=== PATIENT | female | born 1960 | race Caucasian/White ===

== ENCOUNTER 2018-12-30 07:30 | Inpatient (IN) | payer BC ==
[~2018-12-30] VITALS: Ht 170.2 cm; Wt 110.2 kg
[2019-01-08 12:14] LABS: BASOPHILS # (AUTO) 0.1 X10'3 (0-0.2); EOSINOPHILS # (AUTO) 0.2 X10'3 (0-0.9); EOSINOPHILS % (AUTO) 2.7 % (0-6); LYMPHOCYTES # (AUTO) 1.8 X10'3 (1.1-4.8); LYMPHOCYTES % (AUTO) 28.2 % (21-51); MEAN CORPUSCULAR HEMOGLOBIN 27.4 PG (27.0-31.0); MEAN CORPUSCULAR VOLUME 82.9 FL (78-98); MONOCYTES # (AUTO) 0.5 X10'3 (0-0.9); MONOCYTES % (AUTO) 7.2 % (2-12); NEUTROPHILS # (AUTO) 3.9 X10'3 (1.8-7.7); NEUTROPHILS % (AUTO) 60.9 % (42-75); PRE OP HEMATOCRIT 37.2 % (35.0-45.0); PRE OP HEMOGLOBIN 12.3 g/dL (12.0-16.0); PRE OP PLATELET COUNT 357 X10'3 (140-440); RED BLOOD COUNT 4.48 X10'6 (4.20-5.60); RED CELL DISTRIBUTION WIDTH 14.7 % (11.5-14.5)
[2019-01-08 12:23] LABS: PRE OP INR 0.9 INR; PRE OP PROTIME 9.4 SECONDS (9.0-12.0)
[2019-01-08 12:33] LABS: ALBUMIN 3.5 G/DL (3.4-5.0); ALBUMIN/GLOBULIN RATIO 1.1 (1.1-1.5); ALKALINE PHOSPHATASE 59 IU/L (46-116); BLOOD UREA NITROGEN 18 MG/DL (7-18); BUN/CREATININE RATIO 22.8 (6.6-38.0); CALCIUM 8.6 MG/DL (8.5-10.1); CHLORIDE 107 MMOL/L (99-107); CREATININE 0.79 MG/DL (0.40-0.90); PRE OP ALT 29 U/L (30-65); PRE OP ANION GAP 8 (8-16); PRE OP AST 27 U/L (10-37); PRE OP BILIRUB, TOTAL 0.2 MG/DL (0.0-1.0); PRE OP GLUCOSE 93 MG/DL (70-104); PRE OP POTASSIUM 4.4 MMOL/L (3.4-5.1); PRE OP SODIUM 141 MMOL/L (135-145); TOTAL CARBON DIOXIDE 26.5 MMOL/L (24-32); TOTAL PROTEIN 6.8 G/DL (6.4-8.2); eGFR 75 ML/MIN
[2019-01-08] MEDS ORDERED: LEVO175T7 PO (12:39)
[2019-01-08] MEDS ORDERED: FERR324T4 PO (12:39)
[2019-01-08] MEDS ORDERED: HYDR-4353 PO (12:39)
[2019-01-08] MEDS ORDERED: LISI40TA4 PO (12:39)
[2019-01-08] MEDS ORDERED: LEVO1CAP PO (12:39)
[2019-01-08] MEDS ORDERED: LISD60CA PO (12:39)
[2019-01-08] MEDS ORDERED: TURM538C PO (12:39)
[2019-01-08] MEDS ORDERED: MULT-933 PO (12:39)
[2019-01-08] MEDS ORDERED: TRAZ-251 PO (12:39)
[2019-01-08] MEDS ORDERED: OXAP600T4 PO (12:39)
[2019-01-08] MEDS ORDERED: ESZO3TAB66 PO (12:39)
[2019-01-20] VITALS (20 sets, daily range): BP systolic 84–125; BP diastolic 51–83
[2019-01-20] MEDS ORDERED: acetaminophen 325mg tablet PO PRN (06:45)
[2019-01-20] MEDS ORDERED: ondansetron/PF 4mg/2ml inj IV PRN ×2 (06:45→14:20)
[2019-01-20] MEDS ORDERED: diphenhydrAMINE 25mg capsule PO PRN ×2 (06:45)
[2019-01-20] MEDS ORDERED: magnesium hydroxide 30ml (MOM) UD suspension PO PRN (06:45)
[2019-01-20] MEDS ORDERED: bisacodyl 10mg suppository rectal RC PRN (06:45)
[2019-01-20] MEDS ORDERED: HYDROmorphone 1 mg/ml syringe IV PRN ×2 (06:45)
[2019-01-20] MEDS ORDERED: non-formulary drug (Lisinopril* 0.5 TAB) PO SCH (08:00)
[2019-01-20] MEDS ORDERED: OXAPROZIN PO SCH (08:00)
[2019-01-20] MEDS ORDERED: celeCOXIB 100mg capsule PO ONE (11:45)
[2019-01-20] MEDS ORDERED: acetaminophen 325mg tablet PO ONE (11:45)
[2019-01-20] MEDS ORDERED: oxyCODONE SR 10mg (sust. release) tab -2 tabs (20mg) PO ONE (11:45)
[2019-01-20] MEDS ORDERED: vancomycin inj 1,500 MG in normal saline 300ml IV soln IV ONE (11:45)
[2019-01-20] MEDS ORDERED: metoclopramide 5 mg/ml inj IV ONE (11:45)
[2019-01-20] MEDS ORDERED: gabapentin 300mg capsule PO ONE (11:45)
[2019-01-20] MEDS ORDERED: famotidine 20mg tablet PO ONE (11:45)
[2019-01-20] MEDS ORDERED: ringers solution, lacted 1,000 ML IV SCH ×2 (11:45→14:18)
[2019-01-20] MEDS ORDERED: clindamycin-Cleocin 900mg/D5W 50 ML IV ONE (11:45)
[2019-01-20] MEDS ORDERED: tranexamic acid inj. 1,000 MG in normal saline 100 ML IV ONE (11:45)
[2019-01-20] MEDS ORDERED: zolpidem 5mg tablet PO PRN (12:10)
[2019-01-20] MEDS ORDERED: zolpidem 5mg tablet PO SCH (12:10)
[2019-01-20] MEDS ORDERED: ROPIVAcaine 0.5% (5mg/ml) 30ml vial ONE ×3 (12:35→14:19)
[2019-01-20] MEDS ORDERED: vancomycin 1,000mg inj ONE (12:35)
[2019-01-20] MEDS ORDERED: cloNIDine hcl/PF 100mcg/ml inj ONE (12:35)
[2019-01-20] MEDS ORDERED: epiNEPHrine 1 mg/ml inj ONE (12:35)
[2019-01-20] MEDS ORDERED: ketorolac trometh. 30mg/ml inj. ONE (12:49)
[2019-01-20] MEDS ORDERED: tetracaine 1% (10mg/ml) pres. free inj. ONE (13:06)
[2019-01-20] MEDS ORDERED: MIDAZolam 1mg/ml 10ml vial ONE (13:13)
[2019-01-20] MEDS ORDERED: fentaNYL/PF 50MCG/1 ML 2ML syringe ONE (13:14)
[2019-01-20] MEDS ORDERED: ROPIVAcaine 0.2%/PF PAIN PUMP 550 ML IJ SCH (14:18)
[2019-01-20] MEDS ORDERED: proCHLORperazine 10 MG/2 ml inj IV PRN (14:20)
[2019-01-20] MEDS ORDERED: meperidine/PF 25mg/ml syringe IV PRN ×3 (14:20)
[2019-01-20] MEDS ORDERED: morphine 4 MG/ML inj SYRINge IV PRN ×2 (14:20)
[2019-01-20] MEDS ORDERED: propofol inj 20 ML IV ONE (15:35)
--- NOTE | 2019-01-20 15:36 | NUR ---
Received from OR via BED, accompanied by Anesthesiologist DR ASTORGA and report given by Anesthesiologist. PT DROWSY, DENIES PAIN, LEFT KNEE W/DRSG, ICE PACK, KIERA DRAIN, LEG WRAP, CDI. DERMATOME LEVEL L 1-2. Addendum: 01/20/19 at 1616 by Ava Wiley RN Amended: Links added.
--- NOTE | 2019-01-20 17:11 | NUR ---
received report from or
--- NOTE | 2019-01-20 17:16 | NUR ---
Report called to receiving nurse. Transferred via BED, A BAG OF PT Belongings SENT W/PT TO ROOM 4012A, RECEIVING RN AT BEDSIDE TO RECEIVE PT, BLL, CALL LIGHT GIVEN, SIDE RAILS UP X 2. Special Issues communicated to receiving nurse. YES. Addendum: 01/20/19 at 1811 by Ava Wiley RN Amended: Links added.
--- NOTE | 2019-01-20 18:38 | NUR ---
gave report to duc davila
[2019-01-20] MEDS ORDERED: tranexamic acid inj. 1,000 MG in normal saline 100ml IV soln 100 ML IV ONE (19:00)
[2019-01-20] MEDS: sennosides 8.6mg tablet PO SCH (20:12)
[2019-01-20] MEDS: gabapentin 300mg capsule PO SCH (20:13)
[2019-01-20] MEDS: oxyCODONE/APAP 10/325mg tablet PO PRN (20:13)
[2019-01-20] MEDS: ascorbic acid 500mg tablet PO SCH (20:14)
[2019-01-20] MEDS: zolpidem 5mg tablet PO SCH (20:14)
[2019-01-20] MEDS ORDERED: ALGAL OIL PO SCH (21:00)
[2019-01-20] MEDS: traZODone 50mg tablet PO SCH (21:00)
[2019-01-20] MEDS ORDERED: non-formulary drug (Eszopiclone (Lunesta) 1 TAB) PO SCH (21:00)
[2019-01-20] MEDS: [UNRECOGNIZED DRUG - OTHER] PO SCH (21:00)
[2019-01-20] MEDS: OIL PO SCH (21:00)
[2019-01-20] MEDS ORDERED: LEVOMEFOLATE PO SCH (21:00)
[2019-01-21] MEDS: CLINDAMYCIN/D5W 900mg/50ml 50 ML IV SCH ×2 (00:11→09:54)
[2019-01-21] MEDS: potassium cl 20mEq in 1/2 NS 1,000 ML IV SCH ×4 (00:12→22:45)
[2019-01-21 02:00] VITALS: BP 96/62
[2019-01-21] MEDS: oxyCODONE/APAP 10/325mg tablet PO PRN ×4 (05:24→20:32)
[2019-01-21 05:57] LABS: BASOPHILS # (AUTO) 0.1 X10'3 (0-0.2); BASOPHILS % (AUTO) 0.6 % (0-1); EOSINOPHILS # (AUTO) 0.2 X10'3 (0-0.9); EOSINOPHILS % (AUTO) 1.9 % (0-6); HEMATOCRIT 30.3 % (35.0-45.0); HEMOGLOBIN 10.3 g/dl (12.0-16.0); LYMPHOCYTES # (AUTO) 1.4 X10'3 (1.1-4.8); LYMPHOCYTES % (AUTO) 16.7 % (21-51); MEAN CORPUSCULAR HEMOGLOBIN 27.8 PG (27.0-31.0); MEAN CORPUSCULAR HGB CONC 33.9 g/dL (33.0-36.5); MEAN CORPUSCULAR VOLUME 82.2 FL (78-98); MEAN PLATELET VOLUME 7.2 FL (7.4-10.4); MONOCYTES # (AUTO) 0.7 X10'3 (0-0.9); MONOCYTES % (AUTO) 8.3 % (2-12); NEUTROPHILS # (AUTO) 6.2 X10'3 (1.8-7.7); NEUTROPHILS % (AUTO) 72.5 % (42-75); PLATELET COUNT 300 X10'3 (140-440); RED BLOOD COUNT 3.68 X10'6 (4.20-5.60); RED CELL DISTRIBUTION WIDTH 13.9 % (11.5-14.5); WHITE BLOOD COUNT 8.5 X10'3 (4.5-11.0)
[2019-01-21 06:22] LABS: ANION GAP 8 (8-16); CHLORIDE 105 MMOL/L (99-107); POTASSIUM 4.6 MMOL/L (3.5-5.1); SODIUM 139 MMOL/L (135-145); TOTAL CARBON DIOXIDE 26.3 MMOL/L (24-32)
--- NOTE | 2019-01-21 06:43 | NUR ---
Problems reprioritized. Patient report given, questions answered & plan of care reviewed with CHRIS MCGILL.
[2019-01-21] MEDS: naproxen 500mg tablet PO SCH ×2 (07:30→18:07)
[2019-01-21 07:44] VITALS: BP 96/58
[2019-01-21] MEDS: lisinopril 20mg tablet PO SCH (08:00)
[2019-01-21] MEDS: lisdexamfetamine dimesylate 60mg capsule PO SCH (08:00)
[2019-01-21] MEDS: ascorbic acid 500mg tablet PO SCH ×2 (09:07→20:31)
[2019-01-21] MEDS: gabapentin 300mg capsule PO SCH ×3 (09:08→20:31)
[2019-01-21] MEDS: levoTHYROXINE 175mcg tablet PO SCH (09:09)
[2019-01-21] MEDS: aspirin 325mg tablet PO SCH ×2 (09:09→09:13)
[2019-01-21] MEDS: multivitamins, therapeutics tablet PO SCH (09:09)
--- NOTE | 2019-01-21 10:48 | NUR ---
Joint replacement consult: Pt s/p L knee Sx PO 100% regular diet meeting needs. BMI 38. LBM 01/20. Labs WNL. No need for further nutrition intervention at this time. Will continue to monitor. Addendum: 01/21/19 at [address] Amended: Links added.
[2019-01-21 18:00] VITALS: BP 110/67
--- NOTE | 2019-01-21 18:30 | NUR ---
Patient in room [facility]TH[facility] 4012. I have received report from duc Mortensen and had the opportunity to ask questions and assume patient care.
--- NOTE | 2019-01-21 18:58 | NUR ---
Problems reprioritized. Patient report given, questions answered & plan of care reviewed with CHRIS Brown.
[2019-01-21] MEDS: sennosides 8.6mg tablet PO SCH (20:31)
[2019-01-21] MEDS: celeCOXIB 100mg capsule PO SCH (20:31)
[2019-01-21] MEDS: zolpidem 5mg tablet PO SCH (20:32)
[2019-01-21] MEDS: [UNRECOGNIZED DRUG - OTHER] PO SCH (21:00)
[2019-01-21] MEDS: OIL PO SCH (21:00)
[2019-01-21] MEDS: traZODone 50mg tablet PO SCH (21:00)
[2019-01-22] MEDS: oxyCODONE/APAP 10/325mg tablet PO PRN ×3 (00:25→09:03)
[2019-01-22 05:44] LABS: BASOPHILS # (AUTO) 0.1 X10'3 (0-0.2); BASOPHILS % (AUTO) 0.8 % (0-1); EOSINOPHILS # (AUTO) 0.1 X10'3 (0-0.9); HEMATOCRIT 30.2 % (35.0-45.0); HEMOGLOBIN 10.1 g/dl (12.0-16.0); LYMPHOCYTES # (AUTO) 1.3 X10'3 (1.1-4.8); LYMPHOCYTES % (AUTO) 18.3 % (21-51); MEAN CORPUSCULAR HEMOGLOBIN 27.3 PG (27.0-31.0); MEAN CORPUSCULAR HGB CONC 33.3 g/dL (33.0-36.5); MEAN CORPUSCULAR VOLUME 81.8 FL (78-98); MEAN PLATELET VOLUME 6.9 FL (7.4-10.4); MONOCYTES # (AUTO) 0.7 X10'3 (0-0.9); MONOCYTES % (AUTO) 10.3 % (2-12); NEUTROPHILS # (AUTO) 4.7 X10'3 (1.8-7.7); NEUTROPHILS % (AUTO) 68.6 % (42-75); PLATELET COUNT 301 X10'3 (140-440); RED BLOOD COUNT 3.69 X10'6 (4.20-5.60); RED CELL DISTRIBUTION WIDTH 14.1 % (11.5-14.5); WHITE BLOOD COUNT 6.9 X10'3 (4.5-11.0)
[2019-01-22 06:00] VITALS: BP 109/70
--- NOTE | 2019-01-22 06:27 | NUR ---
Problems reprioritized. Patient report given, questions answered & plan of care reviewed with CHRIS GUY.
[2019-01-22] MEDS: naproxen 500mg tablet PO SCH ×2 (07:30→08:42)
[2019-01-22] MEDS: lisdexamfetamine dimesylate 60mg capsule PO SCH (08:00)
[2019-01-22] MEDS: lisinopril 20mg tablet PO SCH (08:00)
[2019-01-22] MEDS: levoTHYROXINE 175mcg tablet PO SCH (08:42)
[2019-01-22] MEDS: multivitamins, therapeutics tablet PO SCH (08:42)
[2019-01-22] MEDS: gabapentin 300mg capsule PO SCH (08:42)
[2019-01-22] MEDS: celeCOXIB 100mg capsule PO SCH (08:42)
[2019-01-22] MEDS: aspirin 325mg tablet PO SCH (08:42)
[2019-01-22] MEDS: ascorbic acid 500mg tablet PO SCH (08:42)
[2019-01-22] MEDS ORDERED: ASPI-1 PO (08:56)
[2019-01-22 10:00] VITALS: BP 106/55
== END 2019-01-22 12:10 | disposition home or self-care (01) | DRG 470 ==
LOC: EDSTATUS 01-20 07:30 → PAS IN 01-20 10:54 → EDSTATUS 01-20 13:45 → ORTHO 4S 01-20 17:53
PROVIDERS: ADMIT Orthopaedic Surgery; ATTEND Orthopaedic Surgery
PROC: 3E0T3BZ Introduction of Anesthetic Agent into Peripheral Nerves and Plexi, Percutaneous Approach (ICD-10-PCS; 2019-01-20)
PROC: 0SRD0J9 Replacement of Left Knee Joint with Synthetic Substitute, Cemented, Open Approach (ICD-10-PCS; principal; 2019-01-20 13:12)
DX: M17.12 Unilateral primary osteoarthritis, left knee (principal); D62 Acute posthemorrhagic anemia; E03.9 Hypothyroidism, unspecified; F90.9 Attention-deficit hyperactivity disorder, unspecified type; I10 Essential (primary) hypertension; G89.29 Other chronic pain; M21.062 Valgus deformity, not elsewhere classified, left knee; M25.762 Osteophyte, left knee; E66.9 Obesity, unspecified; F41.8 Other specified anxiety disorders; Z79.899 Other long term (current) drug therapy; Z79.890 Hormone replacement therapy; Z88.0 Allergy status to penicillin; Z68.38 Body mass index [BMI] 38.0-38.9, adult
CPT/HCPCS: Z7506; Z7508; 36415; 71046; 73560; 80051; 80053; 82948; 84443; 85025; 85610; 85730; 86885; 86900; 86901; 87081; 97110; 97116; 97161; 97530; A4215; A6449; A6454; A7000; C1713; C1758; C1776; G0378; J0171; J0735; J1885; J2250; J2405; J2704; J2765; J2795; J3010; J3370; J3480; J3490; J7120

== ENCOUNTER 2019-06-07 22:36 | Emergency (ER) | payer BC ==
[~2019-06-07] VITALS: Ht 175.3 cm; Wt 107.3 kg
[~2019-06-07 22:36] MED LIST: ASPI-1 PO; ESZO3TAB66 PO; FERR324T4 PO; HYDR-4353 PO; LEVO175T7 PO; LEVO1CAP PO; LISD60CA PO; LISI40TA4 PO; MULT-933 PO; TRAZ-251 PO; TURM538C PO
[2019-06-07] MEDS ORDERED: normal saline 1000ML IV soln IVB ONE (23:10)
[2019-06-07] MEDS ORDERED: ketorolac trometh. 30mg/ml inj. IV ONE (23:10)
[2019-06-07] MEDS ORDERED: ondansetron/PF 4mg/2ml inj IV ONE (23:10)
[2019-06-07 23:29] LABS: CLARITY,URINE CLEAR (Clear); COLOR,URINE YELLOW (Yellow); GLUCOSE, URINE NEGATIVE (Neg); KETONES,URINE 15 mg/dl (Neg); LEUKOCYTE ESTERASE ,URINE SMALL (Neg); NITRITES, URINE NEGATIVE (Neg); OCCULT BLOOD,URINE NEGATIVE (Neg); PROTEIN,URINE NEGATIVE (Neg); UROBILINOGEN,URINE 0.2 E.U/dL (0.2-1.0)
[2019-06-07] MEDS: morphine 4 MG/ML inj SYRINge IV PRN (23:30)
[2019-06-07 23:34] LABS: RBC,URINE NONE SEEN /HPF (0-2); UA COLLECTION TYPE CLN CATCH MIDSTREAM; WBC,URINE 0-4 /HPF (0-4)
[2019-06-07 23:35] LABS: BACTERIA,URINE NONE SEEN /HPF (Neg); SQUAMOUS EPITHELIAL CELL,UR FEW /LPF (FEW)
[2019-06-07 23:45] LABS: BASOPHILS # (AUTO) 0.1 X10'3 (0-0.2); EOSINOPHILS # (AUTO) 0.1 X10'3 (0-0.9); EOSINOPHILS % (AUTO) 0.6 % (0-6); HEMATOCRIT 35.5 % (35.0-45.0); HEMOGLOBIN 11.9 g/dl (12.0-16.0); LYMPHOCYTES # (AUTO) 0.9 X10'3 (1.1-4.8); LYMPHOCYTES % (AUTO) 8.5 % (21-51); MEAN CORPUSCULAR HEMOGLOBIN 26.4 PG (27.0-31.0); MEAN CORPUSCULAR HGB CONC 33.5 g/dL (33.0-36.5); MEAN PLATELET VOLUME 7.3 FL (7.4-10.4); MONOCYTES # (AUTO) 0.6 X10'3 (0-0.9); MONOCYTES % (AUTO) 5.6 % (2-12); NEUTROPHILS # (AUTO) 9.2 X10'3 (1.8-7.7); NEUTROPHILS % (AUTO) 84.3 % (42-75); PLATELET COUNT 387 X10'3 (140-440); RED BLOOD COUNT 4.49 X10'6 (4.20-5.60); WHITE BLOOD COUNT 10.9 X10'3 (4.5-11.0)
[2019-06-07 23:47] LABS: ALANINE AMINOTRANSFERASE 27 U/L (12-78); ALBUMIN 3.7 G/DL (3.4-5.0); ALBUMIN/GLOBULIN RATIO 1.1 (1.1-1.5); ALKALINE PHOSPHATASE 71 IU/L (46-116); ANION GAP 11 (8-16); ASPARTATE AMINO TRANSFERASE 23 U/L (10-37); BILIRUBIN,TOTAL 0.3 MG/DL (0.1-1.0); BLOOD UREA NITROGEN 11 MG/DL (7-18); BUN/CREATININE RATIO 15.7 (6.6-38.0); CALCIUM 8.6 MG/DL (8.5-10.1); CHLORIDE 103 MMOL/L (99-107); GLUCOSE 106 MG/DL (70-104); LIPASE 115 U/L (73-393); POTASSIUM 3.9 MMOL/L (3.5-5.1); SODIUM 138 MMOL/L (135-145); TOTAL CARBON DIOXIDE 23.7 MMOL/L (24-32); TOTAL PROTEIN 7.2 G/DL (6.4-8.2); eGFR 86 ML/MIN
[2019-06-08] MEDS: morphine 4 MG/ML inj SYRINge IV PRN
[2019-06-08] MEDS ORDERED: morphine 4 MG/ML inj SYRINge IV ONE (01:45)
[2019-06-08 02:04] VITALS: BP 129/68
[2019-06-09] MEDS ORDERED: FERR325T32 PO (15:55)
[2019-06-09] MEDS ORDERED: TURM500C4 PO (16:00)
[2019-06-09] MEDS ORDERED: CHOL100044 PO (16:05)
[2019-06-09] MEDS ORDERED: OXAP600T4 PO (16:11)
== END 2019-06-08 02:06 | disposition home or self-care (01) ==
LOC: ER 22:36
DX: K80.20 Calculus of gallbladder without cholecystitis without obstruction (principal); R10.11 Right upper quadrant pain; G89.29 Other chronic pain; Z98.890 Other specified postprocedural states; Z79.82 Long term (current) use of aspirin; Z79.899 Other long term (current) drug therapy; Z88.0 Allergy status to penicillin
CPT/HCPCS: 36415; 76700; 80053; 81001; 83690; 85025; 87088; 96374; 96375; 96376; 99284; J1885; J2270; J2405; J7030

== ENCOUNTER 2019-06-09 12:23 | Inpatient (IN) | payer BC ==
[~2019-06-09] VITALS: Ht 175.3 cm; Wt 104.0 kg
[2019-06-09 13:12] LABS: BASOPHILS # (AUTO) 0.1 X10'3 (0-0.2); BASOPHILS % (AUTO) 0.4 % (0-1); EOSINOPHILS % (AUTO) 0.1 % (0-6); HEMATOCRIT 39.3 % (35.0-45.0); HEMOGLOBIN 12.8 g/dl (12.0-16.0); LYMPHOCYTES # (AUTO) 1.2 X10'3 (1.1-4.8); LYMPHOCYTES % (AUTO) 8.5 % (21-51); MEAN CORPUSCULAR HEMOGLOBIN 25.8 PG (27.0-31.0); MEAN CORPUSCULAR HGB CONC 32.5 g/dL (33.0-36.5); MEAN CORPUSCULAR VOLUME 79.2 FL (78-98); MONOCYTES % (AUTO) 7.1 % (2-12); NEUTROPHILS # (AUTO) 11.3 X10'3 (1.8-7.7); NEUTROPHILS % (AUTO) 83.9 % (42-75); PLATELET COUNT 407 X10'3 (140-440); RED BLOOD COUNT 4.97 X10'6 (4.20-5.60); RED CELL DISTRIBUTION WIDTH 15.7 % (11.5-14.5); WHITE BLOOD COUNT 13.5 X10'3 (4.5-11.0)
[2019-06-09 13:28] LABS: ALANINE AMINOTRANSFERASE 53 U/L (12-78); ALBUMIN 3.5 G/DL (3.4-5.0); ALBUMIN/GLOBULIN RATIO 0.8 (1.1-1.5); ALKALINE PHOSPHATASE 112 IU/L (46-116); ANION GAP 13 (8-16); ASPARTATE AMINO TRANSFERASE 32 U/L (10-37); BILIRUBIN,TOTAL 0.6 MG/DL (0.1-1.0); BLOOD UREA NITROGEN 13 MG/DL (7-18); BUN/CREATININE RATIO 18.8 (6.6-38.0); CALCIUM 8.9 MG/DL (8.5-10.1); CHLORIDE 101 MMOL/L (99-107); CREATININE 0.69 MG/DL (0.40-0.90); GLUCOSE 100 MG/DL (70-104); LIPASE 77 U/L (73-393); POTASSIUM 3.6 MMOL/L (3.5-5.1); SODIUM 139 MMOL/L (135-145); TOTAL CARBON DIOXIDE 25.5 MMOL/L (24-32); TOTAL PROTEIN 7.7 G/DL (6.4-8.2); eGFR 87 ML/MIN
[2019-06-09] MEDS ORDERED: ringers solution, lacted 1,000 ML IV ONE (14:20)
[2019-06-09] MEDS ORDERED: morphine 4 MG/ML inj SYRINge IM ONE (14:20)
[2019-06-09] MEDS ORDERED: FERR325T32 PO (15:55)
[2019-06-09] MEDS ORDERED: TURM500C4 PO (16:00)
[2019-06-09] MEDS ORDERED: CHOL100044 PO (16:05)
[2019-06-09] MEDS ORDERED: OXAP600T4 PO (16:11)
[2019-06-09] MEDS ORDERED: potassium CL 10mEq/100ml bag 100 ML IV PRN ×2 (16:15)
[2019-06-09] MEDS ORDERED: magnesium Cl slow-release 64mg tablet PO PRN (16:15)
[2019-06-09] MEDS ORDERED: magnesium 2GM in 50ml NS 50 ML IV PRN (16:15)
[2019-06-09] MEDS ORDERED: potassium Cl 20 mEq SR tablet PO PRN ×2 (16:15)
[2019-06-09] MEDS ORDERED: acetaminophen 325mg tablet PO PRN (16:15)
[2019-06-09] MEDS ORDERED: magnesium 4gm in 100ml NS 100 ML IV PRN (16:15)
[2019-06-09] MEDS ORDERED: ondansetron/PF 4mg/2ml inj IV PRN (16:15)
[2019-06-09 16:33] LABS: CLARITY,URINE CLEAR (Clear); COLOR,URINE YELLOW (Yellow); GLUCOSE, URINE NEGATIVE (Neg); KETONES,URINE >=80 mg/dl (Neg); LEUKOCYTE ESTERASE ,URINE NEGATIVE (Neg); NITRITES, URINE NEGATIVE (Neg); OCCULT BLOOD,URINE NEGATIVE (Neg); PROTEIN,URINE TRACE mg/dl (Neg); URINE HCG NEGATIVE (NEG); UROBILINOGEN,URINE 0.2 E.U/dL (0.2-1.0)
[2019-06-09 16:38] LABS: UA COLLECTION TYPE VOIDED
[2019-06-09 16:40] LABS: BACTERIA,URINE FEW /HPF (Neg); SQUAMOUS EPITHELIAL CELL,UR FEW /LPF (FEW)
[2019-06-09 16:41] LABS: CELLULAR CAST 0-4 /LPF (NEGATIVE); RBC,URINE 0-2 /HPF (0-2)
--- NOTE | 2019-06-09 17:31 | NUR ---
Received report from ER nurse Selene RN. Awaiting arrival to room 346B.
--- NOTE | 2019-06-09 18:30 | NUR ---
Problems reprioritized. Patient report given, questions answered & plan of care reviewed with Michell PEREZ.
--- NOTE | 2019-06-09 18:31 | NUR ---
Patient just arrived to room 346B. Oriented to room, call light, bed controls.
--- NOTE | 2019-06-09 18:35 | NUR ---
Patient in room [facility]. I have received report from LETY PEREZ and had the opportunity to ask questions and assume patient care.
[2019-06-09] MEDS: normal saline 1000ml 1,000 ML IV SCH (19:48)
[2019-06-09 20:00] VITALS: BP 143/82
[2019-06-09] MEDS: K and/or MAG REPLACEMENT MC SCH (20:00)
[2019-06-09] MEDS: morphine 2 MG/ML inj. syringe IV PRN (20:09)
[2019-06-09] MEDS ORDERED: temazepam 15mg capsule PO PRN (21:00)
[2019-06-10] VITALS (15 sets, daily range): BP systolic 119–156; BP diastolic 68–93
[2019-06-10] MEDS: normal saline 1000ml 1,000 ML IV SCH ×2 (04:20→12:13)
[2019-06-10 06:19] LABS: BASOPHILS % (AUTO) 0.4 % (0-1); EOSINOPHILS # (AUTO) 0.1 X10'3 (0-0.9); EOSINOPHILS % (AUTO) 0.9 % (0-6); HEMATOCRIT 30.8 % (35.0-45.0); HEMOGLOBIN 10.4 g/dl (12.0-16.0); LYMPHOCYTES # (AUTO) 1.2 X10'3 (1.1-4.8); LYMPHOCYTES % (AUTO) 13.1 % (21-51); MEAN CORPUSCULAR HGB CONC 33.7 g/dL (33.0-36.5); MEAN CORPUSCULAR VOLUME 80.2 FL (78-98); MEAN PLATELET VOLUME 7.2 FL (7.4-10.4); MONOCYTES # (AUTO) 0.7 X10'3 (0-0.9); NEUTROPHILS % (AUTO) 77.6 % (42-75); PLATELET COUNT 334 X10'3 (140-440); RED BLOOD COUNT 3.84 X10'6 (4.20-5.60); RED CELL DISTRIBUTION WIDTH 15.9 % (11.5-14.5)
--- NOTE | 2019-06-10 06:30 | NUR ---
Problems reprioritized. Patient report given, questions answered & plan of care reviewed with ALVERTO RN.
[2019-06-10 06:31] LABS: ALBUMIN 2.6 G/DL (3.4-5.0); ANION GAP 9 (8-16); BLOOD UREA NITROGEN 13 MG/DL (7-18); BUN/CREATININE RATIO 24.5 (6.6-38.0); CALCIUM 8.2 MG/DL (8.5-10.1); CHLORIDE 107 MMOL/L (99-107); CREATININE 0.53 MG/DL (0.40-0.90); GLUCOSE 76 MG/DL (70-104); MAGNESIUM 1.6 MG/DL (1.5-2.4); POTASSIUM 3.7 MMOL/L (3.5-5.1); SODIUM 142 MMOL/L (135-145); TOTAL CARBON DIOXIDE 26.3 MMOL/L (24-32); eGFR > 90 ML/MIN
--- NOTE | 2019-06-10 06:56 | NUR ---
Patient in room [facility]. I have received report from Michell PEREZ and had the opportunity to ask questions and assume patient care.
[2019-06-10] MEDS: K and/or MAG REPLACEMENT MC SCH ×2 (08:00→20:00)
[2019-06-10 08:13] LABS: PRE OP PARTIAL THROMB. TIME 30 SECONDS (22-32)
[2019-06-10] MEDS: morphine 2 MG/ML inj. syringe IV PRN ×2 (09:13→21:17)
[2019-06-10] MEDS ORDERED: pneumococcal 23-VAL P-sac vacc 25 mcg/0.5ml vial IMVAC ONE (10:00)
[2019-06-10] MEDS ORDERED: dextrose 50%-water 50ml dispensing syringe IV ONE (14:28)
[2019-06-10] MEDS ORDERED: ringers solution, lacted 1,000 ML IV SCH (14:37)
[2019-06-10] MEDS ORDERED: morphine 4 MG/ML inj SYRINge IV PRN ×2 (14:40)
[2019-06-10] MEDS ORDERED: ondansetron/PF 4mg/2ml inj IV PRN (14:40)
[2019-06-10] MEDS ORDERED: proCHLORperazine 10 MG/2 ml inj IV PRN (14:40)
[2019-06-10] MEDS ORDERED: meperidine/PF 25mg/ml syringe IV PRN ×3 (14:40)
--- NOTE | 2019-06-10 14:46 | NUR ---
ACCCUCHECK PRE OP AFTER AMPULE OF GLUCOSE BY ALVERTO PEREZ FROM [facility]. Addendum: 06/10/19 at 1447 by Doug Ortega RN, RN Amended: Links added.
[2019-06-10] MEDS ORDERED: BUPIVAcaine/PF 2.5 mg/ml (0.25%) 30ml vial ONE (15:09)
[2019-06-10] MEDS ORDERED: fentaNYL/PF 50MCG/1 ML 2ML syringe ONE (15:42)
[2019-06-10] MEDS ORDERED: propofol inj 20 ML IV ONE (15:42)
[2019-06-10] MEDS ORDERED: LIDOcaine 2% (20mg/ml) 5ml vial ONE (15:42)
[2019-06-10] MEDS ORDERED: midazolam 2 mg/2 ml injection ONE (15:42)
[2019-06-10] MEDS ORDERED: dexamethasone sod phosphate 10mg/ml inj ONE (15:55)
[2019-06-10] MEDS ORDERED: rocuronium 10mg/ml inj IV ONE (15:55)
[2019-06-10] MEDS ORDERED: neostigmine methylsulfate 1 MG/ML 10ml vial ONE (15:55)
[2019-06-10] MEDS ORDERED: glycopyrrolate 0.2mg/ml inj ONE (15:55)
[2019-06-10] MEDS ORDERED: desflurane 240ml liquid inh. IH ONE (15:55)
[2019-06-10] MEDS ORDERED: ceFOXitin 1000 MG inj ONE ×2 (16:22)
[2019-06-10] MEDS ORDERED: meperidine/PF 50mg/ml syringe ONE (16:35)
[2019-06-10] MEDS ORDERED: ondansetron/PF 4mg/2ml inj ONE (16:36)
--- NOTE | 2019-06-10 18:10 | NUR ---
Received from OR via BED , accompanied by Anesthesiologist DR GROSSMAN and report given by Anesthesiolgist. PATIENT WAKING UP, DENIES PAIN, V/S WNL, NEUROVASCULAR CHECKS INTACT, 20G PIV RUE, SCD ON, BANDAIDS AND STEWART DRESSING TO LAP SIGHTS OF ABDOMEN CDI WITH ONLY MINIMAL OUTPUT IN DRAIN.
--- NOTE | 2019-06-10 18:30 | NUR ---
I have received report from CHRIS Núñez and had the opportunity to ask questions and will assume patient care when pt arrives to room after surgery.
--- NOTE | 2019-06-10 18:47 | NUR ---
Problems reprioritized. Patient report given, questions answered & plan of care reviewed with Zuleyma PEREZ.
--- NOTE | 2019-06-10 18:51 | NUR ---
Received report from Recovery room, patient is alert and oriented, VSS, EBL off 200mL. Patient will be up to her room shortly.
--- NOTE | 2019-06-10 19:00 | NUR ---
PATIENT A&OX4, DENIES PAIN, V/S WNL, NEUROVASCULAR CHECKS INTACT, 20G PIV RUE, SCD ON, BANDAIDS AND STEWART DRESSING TO LAP SIGHTS OF ABDOMEN CDI WITH ONLY MINIMAL OUTPUT IN DRAIN. PATIENT TAKEN TO 347A WITH ALL BELONGINGS AND HOOKED UP TO MONITORS IN ROOM AND REPORT GIVEN TO RN WHO HAS TAKEN OVER PATIENT CARE.
[2019-06-11] VITALS: BP 156/73
[2019-06-11] MEDS: morphine 2 MG/ML inj. syringe IV PRN ×2 (01:22→05:33)
[2019-06-11] MEDS: normal saline 1000ml 1,000 ML IV SCH ×4 (01:44→19:54)
[2019-06-11 04:00] VITALS: BP 138/80
[2019-06-11 05:46] LABS: BASOPHILS % (AUTO) 0.1 % (0-1); EOSINOPHILS % (AUTO) 0 % (0-6); HEMATOCRIT 31.8 % (35.0-45.0); HEMOGLOBIN 10.6 g/dl (12.0-16.0); LYMPHOCYTES # (AUTO) 0.6 X10'3 (1.1-4.8); LYMPHOCYTES % (AUTO) 5.4 % (21-51); MEAN CORPUSCULAR HEMOGLOBIN 26.3 PG (27.0-31.0); MEAN CORPUSCULAR HGB CONC 33.3 g/dL (33.0-36.5); MEAN CORPUSCULAR VOLUME 79.2 FL (78-98); MEAN PLATELET VOLUME 7.3 FL (7.4-10.4); MONOCYTES # (AUTO) 0.7 X10'3 (0-0.9); MONOCYTES % (AUTO) 6.2 % (2-12); NEUTROPHILS # (AUTO) 9.7 X10'3 (1.8-7.7); NEUTROPHILS % (AUTO) 88.3 % (42-75); PLATELET COUNT 358 X10'3 (140-440); RED BLOOD COUNT 4.01 X10'6 (4.20-5.60); RED CELL DISTRIBUTION WIDTH 15.3 % (11.5-14.5)
[2019-06-11 06:01] LABS: ALBUMIN 2.4 G/DL (3.4-5.0); ANION GAP 13 (8-16); BLOOD UREA NITROGEN 11 MG/DL (7-18); BUN/CREATININE RATIO 21.6 (6.6-38.0); CALCIUM 8.3 MG/DL (8.5-10.1); CHLORIDE 107 MMOL/L (99-107); CREATININE 0.51 MG/DL (0.40-0.90); GLUCOSE 84 MG/DL (70-104); MAGNESIUM 1.5 MG/DL (1.5-2.4); POTASSIUM 4.1 MMOL/L (3.5-5.1); SODIUM 141 MMOL/L (135-145); TOTAL CARBON DIOXIDE 20.7 MMOL/L (24-32); eGFR > 90 ML/MIN
--- NOTE | 2019-06-11 06:25 | NUR ---
Problems reprioritized. Patient report given, questions answered & plan of care reviewed with CHRIS Núñez.
--- NOTE | 2019-06-11 06:30 | NUR ---
Patient in room [facility]. I have received report from Zuleyma PEREZ and had the opportunity to ask questions and assume patient care.
[2019-06-11 07:32] VITALS: BP 150/84
[2019-06-11] MEDS: K and/or MAG REPLACEMENT MC SCH ×2 (08:00→19:47)
[2019-06-11 09:44] LABS: BILIRUBIN,TOTAL 0.4 MG/DL (0.1-1.0)
[2019-06-11] MEDS: oxyCODONE/APAP 10/325mg tablet PO PRN ×2 (10:53→16:31)
[2019-06-11 11:00] VITALS: BP 148/85
[2019-06-11] MEDS ORDERED: pneumococcal 23-VAL P-sac vacc 25 mcg/0.5ml vial IMVAC ONE (14:00)
[2019-06-11 18:00] VITALS: BP 131/81
--- NOTE | 2019-06-11 18:41 | NUR ---
Problems reprioritized. Patient report given, questions answered & plan of care reviewed with Prudence RN.
[2019-06-12] VITALS: BP 144/75
[2019-06-12] MEDS: oxyCODONE/APAP 10/325mg tablet PO PRN ×4 (00:08→19:39)
[2019-06-12] MEDS: normal saline 1000ml 1,000 ML IV SCH ×2 (04:17→13:35)
[2019-06-12 05:35] LABS: BASOPHILS % (AUTO) 0.4 % (0-1); EOSINOPHILS # (AUTO) 0.1 X10'3 (0-0.9); EOSINOPHILS % (AUTO) 0.8 % (0-6); HEMATOCRIT 28.6 % (35.0-45.0); HEMOGLOBIN 9.6 g/dl (12.0-16.0); LYMPHOCYTES # (AUTO) 1.6 X10'3 (1.1-4.8); LYMPHOCYTES % (AUTO) 15.5 % (21-51); MEAN CORPUSCULAR HEMOGLOBIN 26.4 PG (27.0-31.0); MEAN CORPUSCULAR HGB CONC 33.8 g/dL (33.0-36.5); MEAN CORPUSCULAR VOLUME 78.2 FL (78-98); MEAN PLATELET VOLUME 7.1 FL (7.4-10.4); MONOCYTES # (AUTO) 0.8 X10'3 (0-0.9); MONOCYTES % (AUTO) 7.8 % (2-12); NEUTROPHILS % (AUTO) 75.5 % (42-75); PLATELET COUNT 395 X10'3 (140-440); RED BLOOD COUNT 3.65 X10'6 (4.20-5.60); RED CELL DISTRIBUTION WIDTH 15.9 % (11.5-14.5); WHITE BLOOD COUNT 10.5 X10'3 (4.5-11.0)
[2019-06-12 05:43] LABS: ALANINE AMINOTRANSFERASE 31 U/L (12-78); ALBUMIN 2.4 G/DL (3.4-5.0); ALBUMIN/GLOBULIN RATIO 0.7 (1.1-1.5); ALKALINE PHOSPHATASE 84 IU/L (46-116); ANION GAP 9 (8-16); ASPARTATE AMINO TRANSFERASE 20 U/L (10-37); BILIRUBIN,DIRECT 0.1 MG/DL (0-0.3); BILIRUBIN,TOTAL 0.4 MG/DL (0.1-1.0); BLOOD UREA NITROGEN 8 MG/DL (7-18); BUN/CREATININE RATIO 14.8 (6.6-38.0); CALCIUM 7.9 MG/DL (8.5-10.1); CHLORIDE 106 MMOL/L (99-107); CREATININE 0.54 MG/DL (0.40-0.90); GLUCOSE 97 MG/DL (70-104); MAGNESIUM 1.4 MG/DL (1.5-2.4); POTASSIUM 3.8 MMOL/L (3.5-5.1); SODIUM 140 MMOL/L (135-145); TOTAL CARBON DIOXIDE 24.9 MMOL/L (24-32); TOTAL PROTEIN 5.8 G/DL (6.4-8.2); eGFR > 90 ML/MIN
--- NOTE | 2019-06-12 06:16 | NUR ---
Problems reprioritized. Patient report given, questions answered & plan of care reviewed with Raina RN. Patient slept well last night and shows no sign of discomfort.
--- NOTE | 2019-06-12 06:20 | NUR ---
Patient in room [facility]. I have received report from Ariana PEREZ and had the opportunity to ask questions and assume patient care.
[2019-06-12] MEDS: K and/or MAG REPLACEMENT MC SCH ×2 (08:00→20:00)
[2019-06-12 08:18] VITALS: BP 137/90
[2019-06-12 11:07] VITALS: BP 143/90
[2019-06-12 18:00] VITALS: BP 126/74
--- NOTE | 2019-06-12 18:25 | NUR ---
Problems reprioritized. Patient report given, questions answered & plan of care reviewed with Prudence RN.
--- NOTE | 2019-06-12 18:26 | NUR ---
Patient in room [facility]. I have received report from Raina PEREZ and had the opportunity to ask questions and assume patient care.
[2019-06-12] MEDS ORDERED: potassium Cl 20 mEq SR tablet PO PRN ×2 (19:45)
[2019-06-12] MEDS: magnesium Cl slow-release 64mg tablet PO PRN (21:14)
[2019-06-13] VITALS: BP 119/76
[2019-06-13] MEDS: oxyCODONE/APAP 10/325mg tablet PO PRN ×3 (01:40→15:34)
--- NOTE | 2019-06-13 06:10 | NUR ---
Patient in room [facility]. I have received report from Ariana PEREZ and had the opportunity to ask questions and assume patient care.
--- NOTE | 2019-06-13 06:13 | NUR ---
Problems reprioritized. Patient report given, questions answered & plan of care reviewed with Raina PEREZ.
[2019-06-13 06:30] LABS: BASOPHILS # (AUTO) 0.1 X10'3 (0-0.2); EOSINOPHILS # (AUTO) 0.2 X10'3 (0-0.9); EOSINOPHILS % (AUTO) 2.4 % (0-6); HEMATOCRIT 27.5 % (35.0-45.0); HEMOGLOBIN 9.2 g/dl (12.0-16.0); LYMPHOCYTES # (AUTO) 1.6 X10'3 (1.1-4.8); LYMPHOCYTES % (AUTO) 21.7 % (21-51); MEAN CORPUSCULAR HEMOGLOBIN 26.4 PG (27.0-31.0); MEAN CORPUSCULAR HGB CONC 33.5 g/dL (33.0-36.5); MEAN CORPUSCULAR VOLUME 78.9 FL (78-98); MONOCYTES # (AUTO) 0.6 X10'3 (0-0.9); MONOCYTES % (AUTO) 8.7 % (2-12); NEUTROPHILS # (AUTO) 4.7 X10'3 (1.8-7.7); NEUTROPHILS % (AUTO) 66.2 % (42-75); PLATELET COUNT 356 X10'3 (140-440); RED BLOOD COUNT 3.49 X10'6 (4.20-5.60); RED CELL DISTRIBUTION WIDTH 15.5 % (11.5-14.5); WHITE BLOOD COUNT 7.2 X10'3 (4.5-11.0)
[2019-06-13 06:54] LABS: ALANINE AMINOTRANSFERASE 26 U/L (12-78); ALBUMIN 2.3 G/DL (3.4-5.0); ALBUMIN/GLOBULIN RATIO 0.7 (1.1-1.5); ALKALINE PHOSPHATASE 78 IU/L (46-116); ANION GAP 9 (8-16); ASPARTATE AMINO TRANSFERASE 16 U/L (10-37); BILIRUBIN,TOTAL 0.3 MG/DL (0.1-1.0); BLOOD UREA NITROGEN 8 MG/DL (7-18); BUN/CREATININE RATIO 12.7 (6.6-38.0); CALCIUM 8.3 MG/DL (8.5-10.1); CHLORIDE 105 MMOL/L (99-107); CREATININE 0.63 MG/DL (0.40-0.90); GLUCOSE 88 MG/DL (70-104); MAGNESIUM 1.4 MG/DL (1.5-2.4); POTASSIUM 3.5 MMOL/L (3.5-5.1); SODIUM 141 MMOL/L (135-145); TOTAL CARBON DIOXIDE 26.8 MMOL/L (24-32); TOTAL PROTEIN 5.8 G/DL (6.4-8.2); eGFR > 90 ML/MIN
[2019-06-13 07:16] VITALS: BP 122/80
[2019-06-13] MEDS: K and/or MAG REPLACEMENT MC SCH (08:43)
[2019-06-13] MEDS: magnesium Cl slow-release 64mg tablet PO PRN (08:44)
--- NOTE | 2019-06-13 09:34 | NUR ---
Patient drinking Prune Juice. NO BM currently.
[2019-06-13] MEDS ORDERED: sennosides/docusate sodium tablet PO SCH (10:55)
[2019-06-13] MEDS ORDERED: docusate sod 100mg capsule PO SCH (10:55)
[2019-06-13] MEDS ORDERED: magnesium hydroxide 30ml (MOM) UD suspension PO PRN (10:55)
[2019-06-13 11:00] VITALS: BP 188/50
[2019-06-13] MEDS ORDERED: levoTHYROXINE 175mcg tablet PO SCH (11:05)
[2019-06-13] MEDS ORDERED: lisdexamfetamine dimesylate 60mg capsule PO SCH (11:05)
[2019-06-13] MEDS ORDERED: traZODone 50mg tablet PO PRN (11:05)
[2019-06-13 11:09] VITALS: BP 118/72
[2019-06-13] MEDS ORDERED: hyDRALAzine 10mg tablet PO PRN (11:10)
[2019-06-13] MEDS ORDERED: zolpidem 5mg tablet PO PRN (11:40)
--- NOTE | 2019-06-13 16:05 | NUR ---
Patient discharged on nursing end. Waiting to see if STEWART can be discontinued before discharge, paged Dr. Negro to see if he would like it to remain in place or removed. Discharge prolonged do to discharge ahead of Toshia. Discharge is completed on nursing end currently.
--- NOTE | 2019-06-13 17:20 | NUR ---
STEWART surgical drain dc'd before patient discharged. Order impregnator electrolytic capacitors from Dr. Negro. Patient tolerated well. Patient educated on how to keep clean, no bathes or hottubs. Dressing supplied to patient. Patient walked out to lobby with and all belongings. No new medications, no medications in the pharmacy. All medicication next doses written out for patient to take at home.
[2019-06-14] MEDS ORDERED: multivitamins, therapeutics tablet PO SCH (08:00)
[2019-06-14] MEDS ORDERED: vitamin D (cholecalciferol) 1,000 unit tablet PO SCH (08:00)
[2019-06-14] MEDS ORDERED: OXAPROZIN PO SCH (08:00)
[2019-06-15] MEDS ORDERED: ferrous sulfate 325mg tablet PO SCH (08:00)
== END 2019-06-13 17:17 | disposition home or self-care (01) | DRG 419 ==
LOC: ER 12:25 → ED HOLD 16:13 → SUR 3N 17:55
PROVIDERS: ADMIT Internal Medicine; ATTEND Hospitalist
PROC: 0FT44ZZ Resection of Gallbladder, Percutaneous Endoscopic Approach (ICD-10-PCS; principal; 2019-06-10 15:55)
PROC: 3E0234Z Introduction of Serum, Toxoid and Vaccine into Muscle, Percutaneous Approach (ICD-10-PCS; 2019-06-11)
DX: K80.62 Calculus of gallbladder and bile duct with acute cholecystitis without obstruction (principal); E03.9 Hypothyroidism, unspecified; E66.01 Morbid (severe) obesity due to excess calories; G47.00 Insomnia, unspecified; I10 Essential (primary) hypertension; K82.8 Other specified diseases of gallbladder; Z96.652 Presence of left artificial knee joint; G89.29 Other chronic pain; Z23 Encounter for immunization; Z68.33 Body mass index [BMI] 33.0-33.9, adult; Z88.0 Allergy status to penicillin; Z79.899 Other long term (current) drug therapy
CPT/HCPCS: 96360; 96372; 99285; Z7506; Z7508; 36415; 71045; 74181; 80048; 80053; 80076; 81001; 81025; 82247; 82948; 83690; 83735; 85025; 85610; 85730; 87081; 87088; 90732; 93005; A4215; A4618; A6449; A7000; G0378; J0694; J1100; J2001; J2175; J2250; J2270; J2405; J2704; J2710; J3010; J3490; J7030; J7120